=== PATIENT | male | born 1995 | race Caucasian/White ===

== ENCOUNTER 2016-06-08 19:31 | Emergency (ER) | payer BC ==
[2016-06-08] MEDS ORDERED: LIDOCAINE HCL 20 ML VIAL ONE (20:34)
--- OUTSIDE RECORDS SUMMARY | 2016-06-08 20:44 | XMS REPORT | Continuity of Care Document ---
:1995 Author Organization [employer] Address Unavailable [place] [id number] Care Team Providers Name Role Phone Provider, None Per Patient Primary Care Provider Unavailable Source Comments This disclosure is being made pursuant to the [employer] program and maynot contain all information available regarding this patient.[employer] Active Allergies and Adverse Reactions No Known Allergies Current Medications Be aware that medications may not be up to date as of this document. Alwaysverify current medications with the patient. Prescription Sig. Disp. Refills Start Date End Date Status lisdexamfetamine Take 40 mg by 10/07/2012 Active (VYVANSE) 40 MG capsule mouth daily. tretinoin (RETIN-A) Apply 0.05 % 08/10/2010 Active 0.05 % cream topically daily. cephALEXin (KEFLEX) 500 Take 1 capsule 21 capsule 0 10/04/2013 Active MG capsule by mouth 3 (three) times daily. Active Problems Problem Noted Date Infected abrasions of multiple sites 10/07/2013 Fall from skateboard 10/07/2013 Most Recent Encounters Date Type Specialty Providers Description 05/20/2016 Data Import Immunizations Name Dates Previously Given Next Due DTP / HiB 11/18/1996,03/25/1996,01/26/1996,1995 DTaP, 5 pertussis antigens 10/12/2001 Hepatitis A adult 04/05/2009,09/26/2008 Hepatitis B 03/25/1996,01/26/1996,1995 IPV 10/12/2001,03/25/1996,01/26/1996 MMR 10/12/2001,11/18/1996 Meningococcal Conjugate 09/26/2008 OPV 1995 PPD Test 11/18/1996 Tdap 11/30/2013,09/26/2008 Varicella 04/05/2009,09/26/2008 Social History Tobacco Use Types Packs/Day Years Used Date Never Smoker Smokeless Tobacco: Never Used Alcohol Use Drinks/Week oz/Week Comments No Last Filed Vital Signs Vital Sign Reading Time Taken Blood Pressure 125/60 11/30/2013 6:27 PM CDT Pulse 77 11/30/2013 6:27 PM CDT Temperature 36.3 C (97.4 F) 11/30/2013 5:40 PM CDT Respiratory Rate 18 11/30/2013 6:27 PM CDT Height 1.803 m (5' 11") 10/04/2013 7:28 PM CDT Weight 76.658 kg (169 lb) 10/04/2013 7:28 PM CDT Body Mass Index 23.58 10/04/2013 7:28 PM CDT Oxygen Saturation 99% 11/30/2013 6:27 PM CDT Plan of Care Health Maintenance Due Date Last Done Comments HPV Vaccine (9-26YO) (1 of 3 09/05/2006 - Male 3 Dose Series) Meningococcal Vaccine (2 of 09/06/2011 09/26/2008 2) Influenza Immunization (#1) 2015 Tetanus/Pertussis (4 - Td) 12/01/2023 11/30/2013, Additional history exists 09/26/2008, 10/12/2001 Results from Last 3 Months Not on file
--- OUTSIDE RECORDS SUMMARY | 2016-06-08 20:45 | XMS REPORT | Continuity of Care Document ---
:1995 Author Organization [facility] [place] [address] Phone [phone] Care Team Providers Name Role Phone Unavailable Primary Care Provider Unavailable Active Allergies and Adverse Reactions No Known Allergies Current Medications Always verify current medications with the patient because some medications mayno longer be current as of this document. Not on file Active Problems Not on file Social History Tobacco Use Types Packs/Day Years Used Date Never Smoker Plan of Care Health Maintenance Due Date Last Done Comments [facility]Td Vaccines (1 - Tdap) 09/05/2014 [facility] Influenza 09/24/2016 [facility] Zoster (#1) 09/06/2055 Results from Last 3 Months Not on file
[2016-06-08] MEDS ORDERED: AMOX TR/POTASSIUM CLAVULANATE 875 MG TABLET PO ONE (21:07)
--- NOTE | 2016-06-08 21:11 | ERNOTE ---
Medical Problem HPI - Narrative Date of Service: 06/08/16 - General Chief Complaint: Laceration Time Seen by Provider: 06/08/16 20:24 Source: patient, RN notes reviewed Exam Limitations: no limitations - Immun/Allergies/Home Medications Immunizations: IMMUNIZATION HX Immunizations Up to Date Yes History of Influenza Vaccine No Home Medications: HOME MEDICATIONS Amox Tr/Potassium Clavulanate [Augmentin 875-125 Tablet] 875 mg PO Q12H #10 tab 06/08/16 [Last Taken Unknown] - History of Present History Narrative: 20 y/o male ambulatory to the ED for a dog bite injury to the right ear. It was his grandmother's dog that bit him. It is reported to be current on its vaccinations. He attempted to grab the dog when it bit him. The dog has been unfriendly to him in the past. He states that he should have known better. Review of Systems - Review of Systems Constitutional: Absent: recent illness, fever, malaise EYE: Present: no symptoms reported ENT: Present: ear pain. Absent: ear discharge Respiratory: Absent: shortness of breath, cough Cardiology: Absent: chest pain, syncope Gastrointestinal/Abdominal: Absent: nausea, vomiting Genitourinary: Present: no symptoms reported Musculoskeletal: Absent: joint pain, joint swelling Skin: Absent: lesions, lumps Neurological: Absent: headache, dizziness/light-headedness, numbness, tingling Endocrine: Present: no symptoms reported Hematologic/Lymphatic: Absent: easy bruising, easy bleeding Psych: Present: no symptoms reported - Patient's Past Medical History Patient History - Medical: No pertinent hx Patient History - Cardiac/Respiratory: No pertinent hx Patient History - Cancer: No Hx of Cancer Patient History - Surgical Procedures: T & A Patient History - Other: None - Social History Living Situations: parents Abuse History: No History of abuse Psych History: No pertinent hx Smoking Status: Current every day smoker Have you smoked in the past 12 months: No Do you dip or chew tobacco: No Patient requests Smoking Cessation Consult: No Initiate information on Smoking Cessation: No Alcohol Use: none Drug Use: none - Immunizations Immunizations Up to Date: Yes History of Influenza Vaccine: No Physical Exam - Physical Exam General Appearance: Present: wd/wn, alert, no apparent distress, anxious Eye Exam: Normal inspection: bilateral Neck: Present: normal inspection, nontender, supple, full range of motion Respiratory: Present: no respiratory distress, normal breath sounds, no accessory muscle use, lungs clear Cardiovascular/Chest: Present: regular rate, rhythm, no murmur, normal peripheral pulses Neurological Exam: Present: alert, oriented, normal mood/affect, no motor/ sensory deficits Skin Exam: Present: normal color, warm/dry, other - Laceration to right auricle ED Progress - Vital Signs Patient's Vital Signs:: I have reviewed the patient's vital signs. Vital Signs: Vital Signs 06/08/16 19:32 Temperature 37.3 C Pulse Rate 66 Respiratory 16 Rate Blood Pressure 120/61 O2 Sat by Pulse 97 Oximetry - Progress/Reassessment Chief Complaint: Laceration Progress:: Improved Progress Note-Subjective: 06/08/16 21:40 Police contacted by nursing staff regarding incident Procedures Right Ear Anesthesia: 1% Lidocaine - Post-auricular block Length of Repair/Wound (cm): 2 Wound's Depth/Shape: into subcutaneous, linear Wound Explored: clean, to base, in bloodless field, no foreign body Wound Intervention: irrigated w/saline - 1 L, other - cleansed with chlorhexidine Wound Repaired With: sutures Suture Size/Type: 5-0, nylon Number of Sutures: 4 Layer Closure: Simple Wound Dressing: sterile dressing applied Complications: Pt pollo procedure well Departure - Departure Clinical Impression: Dog bite of ear Qualifiers: Encounter type: initial encounter Laterality: right Qualified Code(s): S01.351A - Open bite of right ear, initial encounter Disposition: Home Follow Up Needed Condition: Good Instructions: Animal Bite Additional Instructions: Keep dressing dry and in place for 24 hours OK to then wash wound gently with soap and water, apply antibiotic ointment twice a day, and bandage as needed Have sutures removed in 5 days Prescriptions: Amox Tr/Potassium Clavulanate [Augmentin 875-125 Tablet] 875 mg PO Q12H #10 tab
[2016-06-08] MEDS ORDERED: AMOX TR/POTASSIUM CLAVULANATE 875 MG TABLET ONE (21:41)
[2016-06-08 21:59] VITALS: BP 124/68
== END 2016-06-08 21:58 | disposition home or self-care (01) ==
LOC: ER 19:31
PROC: 0HQ2XZZ Repair Right Ear Skin, External Approach (ICD-10-PCS; principal; 2016-06-08)
DX: S01.351A Open bite of right ear, initial encounter (principal); W54.0XXA Bitten by dog, initial encounter; Y92.9 Unspecified place or not applicable